=== PATIENT | female | born 1970 | race American Indian/Alaskan Native ===

== ENCOUNTER 2016-10-26 12:05 | Inpatient (IN) | payer BC ==
[2016-10-26] MEDS ORDERED: SUBLIMAZE IV ONE (12:39)
[2016-10-26] MEDS ORDERED: NITRO-BID 2% TP ONE (12:39)
[2016-10-26] MEDS ORDERED: ZOFRAN IV ONE (12:39)
--- NOTE | 2016-10-26 12:44 | Emergency Department Report ---
HPI - General Chief Complaint: Chest Pain Time Seen by Provider: 10/26/16 12:33 - HPI HPI: Room 25 The patient is a 46-year-old female presenting with a chief complaint of chest pain. The patient states approximately one to 2 hours ago she developed anterior chest heaviness associated with shortness of breath. Patient states she felt nervous and hands were shaking. Patient denies nausea/vomiting or diaphoresis. Patient currently gets her chest heaviness a score of 6/10. The patient states her last stress test occurred over 4 years ago and she has never had a cardiac catheterization Location: Chest Duration: One to 2 hours Quality: Heaviness Severity: 6/10 Modifying factors: [see above] Context: [see above] Mode of transportation: Unknown ED Past Medical Hx - Past Medical History Previous Medical History?: Yes Hx Hypertension: Yes - Surgical History Past Surgical History?: Yes Additional Surgical History: Gastric sleeve february 2012. ,. Tubal ligation, hysterectomy - Social History Smoking Status: Never Smoker Substance Use Type: Alcohol (occasional) - Medications Home Medications: Home Medications Medication Instructions Recorded Confirmed Last Taken Type Azilsartan Medoxomil [Edarbi] 80 mg PO DAILY 11/25/13 11/25/13 11/25/13 05:00 History Diphenoxylate/Atropine [Lomotil] 1 tab PO Q4H PRN #10 tablet 11/25/13 Unknown Rx Hyoscyamine Subl [Levsin Sl] 0.125 mg PO Q4-6H PRN #12 tablet 11/25/13 Unknown Rx Promethazine [Phenergan] 25 mg PO Q6H PRN #12 tablet 11/25/13 Unknown Rx Cyclobenzaprine [Flexeril 10 MG 10 mg PO TID PRN #20 tablet 09/29/14 Unknown Rx TAB] Naproxen [Naprosyn TAB] 500 mg PO BID #30 tablet 09/29/14 Unknown Rx Acetaminophen/Codeine 1 tab PO Q6H PRN #10 tab 11/05/15 Unknown Rx [Acetaminophen-Codeine #3 TAB] Diazepam Tab [Valium] 2 mg PO TID PRN #10 tablet 05/04/16 Unknown Rx ED Review of Systems ROS: Stated complaint: HIGH BP Other details as noted in HPI Comment: All other systems reviewed and negative Constitutional: denies: diaphoresis Eyes: denies: eye pain, eye discharge, vision change ENT: denies: ear pain, throat pain Respiratory: shortness of breath Cardiovascular: chest pain Endocrine: no symptoms reported Gastrointestinal: denies: abdominal pain, nausea, diarrhea Genitourinary: denies: urgency, dysuria, discharge Musculoskeletal: denies: back pain, joint swelling, arthralgia Skin: denies: rash, lesions Neurological: denies: headache, weakness, paresthesias Psychiatric: anxiety Hematological/Lymphatic: denies: easy bleeding, easy bruising Physical Exam - Physical Exam Vital Signs: Vital Signs 10/26/16 12:11 Temperature 99.1 F Pulse Rate 104 H Respiratory 22 Rate Blood Pressure 222/128 O2 Sat by Pulse 98 Oximetry Physical Exam: GENERAL: The patient is well-developed well-nourished female lying on stretcher not appearing to be in acute distress. [] HEENT: Normocephalic. Atraumatic. Extraocular motions are intact. Patient has moist mucous membranes. NECK: Supple. Trachea midline CHEST/LUNGS: Clear to auscultation. There is no respiratory distress noted. HEART/CARDIOVASCULAR: Regular. There is no tachycardia. There is no gallop rub or murmur. ABDOMEN: Abdomen is soft, nontender. Patient has normal bowel sounds. There is no abdominal distention. SKIN: There is no rash. There is no edema. There is no diaphoresis. NEURO: The patient is awake, alert, and oriented. The patient is cooperative. The patient has normal speech MUSCULOSKELETAL: There is no evidence of acute injury. ED Course Vital Signs 10/26/16 12:11 Temperature 99.1 F Pulse Rate 104 H Respiratory 22 Rate Blood Pressure 222/128 O2 Sat by Pulse 98 Oximetry ED Medical Decision Making - Lab Data Result diagrams: 10/26/16 12:32 10/26/16 12:32 Laboratory Tests 10/26/16 10/26/16 10/26/16 12:32 12:32 12:32 WBC 9.4 RBC 4.77 Hgb 12.6 Hct 39.6 MCV 83 MCH 26 L MCHC 32 RDW 13.6 Plt Count 282 Lymph % (Auto) 24.4 Butler % (Auto) 5.2 Eos % (Auto) 0.2 Baso % (Auto) 0.4 Lymph # 2.3 Butler # 0.5 Eos # 0.0 Baso # 0.0 Seg Neutrophils % 69.8 Seg Neutrophils # 6.5 PT 12.4 INR 0.93 APTT 35.8 Sodium 139 Potassium 3.8 Chloride 98.2 Carbon Dioxide 24 Anion Gap 21 BUN 8 Creatinine 0.7 Estimated GFR > 60 BUN/Creatinine Ratio 11.42 Glucose 106 H Calcium 8.5 Troponin T < 0.010 - EKG Data -: EKG Interpreted by Me EKG shows normal: sinus rhythm Rate: normal - EKG Data When compared to previous EKG there are: previous EKG unavailable Interpretation: nonspecific ST-T wave shakir (T-wave inversion in lead 3 and v2) - Radiology Data Radiology results: image reviewed (chest x-ray) interpreted by me: Chest x-ray-no focal infiltrates, no pneumothorax - Differential Diagnosis ACS, anxiety, GERD, pericarditis Critical care attestation.: If time is entered above; I have spent that time in minutes in the direct care of this critically ill patient, excluding procedure time. ED Disposition Clinical Impression: Chest pain Disposition: OP ADMITTED IP TO THIS HOSP Is pt being admited?: Yes Does the pt Need Aspirin: Yes Condition: Fair Instructions: Chest Pain (ED) Referrals: PRIMARY CARE, [Primary Care Provider] - 3-5 Days Time of Disposition: 13:27 (hospitalist paged)
[2016-10-26 12:47] LABS: Basophils % (Auto) 0.4 % (0.0-1.8); Eosinophils % (Auto) 0.2 % (0.0-4.3); Hematocrit 39.6 % (30.3-42.9); Hemoglobin 12.6 gm/dl (10.1-14.3); Mean Corpuscular HGB Conc 32 % (30-34); Mean Corpuscular Hemoglobin 26 pg (28-32); Mean Corpuscular Volume 83 fl (79-97); Platelet Count 282 K/mm3 (140-440); Red Blood Count 4.77 M/mm3 (3.65-5.03); Red Cell Distribution Width 13.6 % (13.2-15.2); White Blood Count 9.4 K/mm3 (4.5-11.0)
[2016-10-26] MEDS ORDERED: ASPIRIN PO ONE (12:47)
--- NOTE | 2016-10-26 12:56 | Admit Criteria Form ---
Admission Criteria Documentation: CHEST PAIN Clinical Indications for Admission to Inpatient Care (Place 'X' for any and all applicable criteria): Admission is indicated for chest pain and ANY ONE of the following(1)(2)(3)(4)(5 ): [ ]I. Angina with acute coronary syndrome (Also use Myocardial Infarction or Angina guideline) [ ]II. Hemodynamic instability [X ]III. Angina needing acute intervention as indicated by ALL of the following (11)(12): [ X]a) Unstable angina is present as indicated by angina that is ANY ONE of the following: []i) New onset [ ]ii) Nocturnal [ ]iii) Prolonged at rest [X ]iv) Progressive [ X]b) Angina warrants acute intervention as indicated by ANY ONE of the following: [ ]i) Recurrent angina (e.g, not responding as previously to treatment) [X ]ii) Angina at rest or with low-level activities despite initial medical therapy [ ]iii) New or presumably new ST-segment depression on ECG [ ]iv) Signs or symptoms of heart failure (eg, dyspnea, pulmonary edema) [ ]v) New or worsening mitral regurgitation [ ]vi) Hemodynamic instability [ ]vii) Dangerous arrhythmia (eg, sustained ventricular tachycardia) [ ]viii) History of percutaneous coronary intervention within 6 months [ ]ix) History of coronary artery bypass graft surgery [ ]x) JOY risk score of 2 or greater[A] [ ]xi) History of Diabetes(14) [ ]xii) High-risk cardiac ischemia findings on noninvasive testing (e.g, echocardiogram, treadmill testing, nuclear scan) [ ]xiii) Chronic renal insufficiency (ie, estimated GFR less than 60 mL/min/1.732m) [ ]xiv) Left ventricular ejection fraction less than 40% [ ]IV. Evidence of LA (eg, cardiac biomarkers positive, ST-segment elevation on ECG) also use Myocardial Infarction Criteria Form. [ ]V. Pulmonary edema [ ]. Respiratory distress [ ]VII. Chest pain indicative of serious diagnosis other than coronary artery disease (eg, aortic dissection) [ ]VIII. Contraindications and/or Inappropriate clinical situations for Observational Care in patients with Chest Pain, when ANY ONE of the following is required: [ ]a) Patient with risk factor for pulmonary embolism, acute coronary syndrome and myocardial infarction (18) [ ]b) Patient with Pulmonary embolism require an average LOS of 4.3 days, therefore emergency department observation management is inappropriate 18,23 [ ]c) Painful condition/s in the elderly, have the highest rate of recidivism after emergency department observation management (10.8%) 20,21,22 [ ]d) Elevated cardiac biomarker requires intensive and exhaustive care (19) [X ]IX. General contraindications and/or Inappropriate clinical situations for Observational Care in patients with Chest Pain, when ANY ONE of the following is required: [ ]a) Prediction of prolongation of LOS based on ANY ONE of the following may be considered as a contraindication for observational care 2, 3, 4, 5, 6, 7, 8, 9, 10, 11 [ ]i) Age > 65 yrs. [ ]ii) Patient arriving by ambulance [ ]iii) Patient with high acuity [ ]iv) Patient requiring vital sign monitoring [ ]v) Patient on IV medication [X ]b) Systolic blood pressures 180mmHg 3,12 [ ]c) Patient with altered mental status including delirium and other alteration of consciousness, (3) [ ]d) Patient whose discharge disposition will be to a long term home or rehabilitation home should not be managed in Emergency Department Observation Unit. CMS rule requires 3 days hospital stay before such placement. 3,13 [ ]e) Patient with failure to thrive due to broad array of etiologies 3,16,17 [ ]f) Inability to ambulate 3,14 Extended stay beyond goal length of stay may be needed for (1)(28): [ ]a) Specific condition diagnosed after evaluation (eg, pulmonary embolism, aortic dissection) [ ]b) Unstable angina [ ]c) Continued suspicion of acute coronary syndrome with inability to complete needed cardiac evaluation (eg, patient clinically unable to undergo stress testing) [ ]d) Myocardial infarction (Contents from ANGINA and CHEST PAIN clinical indications for admission to inpatient care have been integrated in this form) The original [employer] content created by [employer] has been revised. The portions of the content which have been revised are identified through the use of italic text or in bold, and [employer] [facility] [employer] has neither reviewed nor approved the modified material. All other unmodified content is copyright [employer]. Please see references footnoted in the original [employer] edition 2016 Admission Criteria Met: Yes
[2016-10-26 13:02] LABS: BUN/Creatinine Ratio 11.42; Blood Urea Nitrogen 8 mg/dL (7-17); Calcium 8.5 mg/dL (8.4-10.2); Carbon Dioxide 24 mmol/L (22-30); Glucose 106 mg/dL (65-100)
[2016-10-26 13:03] LABS: Chloride 98.2 mmol/L (98-107); Potassium 3.8 mmol/L (3.6-5.0); Sodium 139 mmol/L (137-145)
[2016-10-26 13:04] LABS: Anion Gap 21 mmol/L
[2016-10-26 13:19] LABS: INR 0.93 (0.87-1.13)
[2016-10-26 13:20] LABS: Partial Thromboplastin Time 35.8 Sec. (24.2-36.6)
--- NOTE | 2016-10-26 14:03 | XRay Report ---
PORTABLE CHEST: An AP portable view of the chest demonstrates a normal cardiac contour considering the limits of this technique. The lungs are clear with no evidence of infiltrate, fluid or failure. IMPRESSION: Normal portable chest.
[2016-10-26] MEDS ORDERED: TYLENOL ONE (15:39)
--- NOTE | 2016-10-26 16:49 | Event Note ---
Date: 10/26/16 See H/p in reports Chest pain-r/o [place] protocol
[2016-10-26] MEDS ORDERED: TYLENOL #3 PO PRN (16:50)
[2016-10-26] MEDS ORDERED: PHENERGAN PO PRN (16:51)
[2016-10-26] MEDS ORDERED: VALIUM PO PRN (16:51)
[2016-10-26] MEDS ORDERED: FLEXERIL PO PRN (16:51)
[2016-10-26] MEDS ORDERED: LEVSIN SL PO PRN ×2 (16:51→17:47)
[2016-10-26] MEDS ORDERED: LOMOTIL PO PRN (16:51)
[2016-10-26] MEDS ORDERED: DILAUDID IV PRN (16:55)
[2016-10-26] MEDS ORDERED: ZOFRAN IV PRN (16:55)
[2016-10-26] MEDS ORDERED: MILK OF MAGNESIA PO PRN (16:55)
[2016-10-26] MEDS ORDERED: DULCOLAX PR PRN (16:55)
[2016-10-26] MEDS ORDERED: TYLENOL PO PRN (16:55)
[2016-10-26] MEDS ORDERED: SODIUM CHLORIDE FLUSH SYRINGE 10 ML IV PRN (16:59)
[2016-10-26] MEDS ORDERED: AZILSARTAN MEDOXOMIL 80 MG PO SCH (17:00)
[2016-10-26 18:46] LABS: Creatine Kinase MB 1.2 ng/mL (0.0-4.0)
[2016-10-26 18:47] LABS: Creatine Kinase 87 units/L (30-135)
[2016-10-26] MEDS: LOVENOX SUB-Q SCH (19:38)
[2016-10-26] MEDS: NAPROSYN PO SCH (21:59)
[2016-10-27 01:03] LABS: Creatine Kinase MB 1.1 ng/mL (0.0-4.0)
[2016-10-27 01:05] LABS: Creatine Kinase 78 units/L (30-135)
--- NOTE | 2016-10-27 02:45 | History and Physical Report ---
CHIEF COMPLAINT: Left-sided chest pain. HISTORY OF PRESENT ILLNESS: A 46-year-old female who presents with chest pain of 2 hours' duration prior to admission to the ER. Chest pain is retrosternal and left precordial, and associated with shortness of breath. [place] nervous and hands were shaking. Denies nausea, vomiting, or diaphoresis. Her chest pain is about 6/10. Her last stress test was 4 years ago. She never had a cardiac catheterization. PAST MEDICAL HISTORY: Significant for hypertension. PAST SURGICAL HISTORY: Gastric sleeve in 02/2012 and , tubal ligation, and hysterectomy. SOCIAL HISTORY: Does not smoke. Alcohol occasionally. CURRENT MEDICATIONS: Edarbi 80 mg daily, Flexeril 10 mg t.i.d., diazepam 2 mg p.o. t.i.d. FAMILY HISTORY: Significant for hypertension. REVIEW OF SYSTEMS: Significant for left-sided chest pain and shortness of breath. Otherwise, review of systems is essentially negative. A 14-point review of systems done. PHYSICAL EXAMINATION: GENERAL: Middle-aged female, cooperative during examination. VITAL SIGNS: Blood pressure is 222/128, temperature is 99.1, pulse is 104, respirations are 22. HEENT: Unremarkable. Pupils equal and reactive. NECK: Supple, no lymphadenopathy, no thyromegaly. LUNGS: Clear to auscultation and percussion. Good air entry. CARDIOVASCULAR: S1, S2 heard. No gallop, no murmur, no rub. Apical impulse in left fifth intercostal space and midclavicular line. ABDOMEN: Soft and benign. No hepatosplenomegaly. No guarding, no rigidity. Hernial orifices are normal. EXTREMITIES: Good pedal pulses. No pedal edema. CENTRAL NERVOUS SYSTEM: Alert and oriented x 4, nonfocal exam. LABORATORY DATA: Significant for white count of 9400, H and H is 12.6 and 39.6, platelet count is 282,000. Glucose is 106. Electrolytes are normal. EKG shows normal sinus rhythm, nonspecific ST-T wave changes. Previous EKG unavailable. Chest x-ray, no focal deficits. ASSESSMENT AND PLAN: 1. Hypertensive emergency. Continue Edarbi 80 mg or equivalent. Add Coreg and amlodipine as necessary. 2. Chest pain, rule out myocardial infarction, chest pain protocol. Serial cardiac enzymes and nuclear Lexiscan. 3. Deep venous thrombosis prophylaxis, Lovenox 40 mg subcutaneous daily. [facility]# [id number]
[2016-10-27 07:22] LABS: Basophils % (Auto) 0.4 % (0.0-1.8); Eosinophils % (Auto) 1.4 % (0.0-4.3); Hematocrit 36.3 % (30.3-42.9); Hemoglobin 11.6 gm/dl (10.1-14.3); Mean Corpuscular HGB Conc 32 % (30-34); Mean Corpuscular Hemoglobin 27 pg (28-32); Mean Corpuscular Volume 84 fl (79-97); Platelet Count 256 K/mm3 (140-440); Red Blood Count 4.35 M/mm3 (3.65-5.03); Red Cell Distribution Width 13.6 % (13.2-15.2); White Blood Count 7.2 K/mm3 (4.5-11.0)
[2016-10-27 07:48] LABS: Alanine Aminotransferase 8 units/L (7-56); Albumin 3.3 g/dL (3.9-5); Albumin/Globulin Ratio 0.9 %; Anion Gap 16 mmol/L; Bilirubin,Total 0.4 mg/dL (0.1-1.2); Blood Urea Nitrogen 10 mg/dL (7-17); Calcium 8.3 mg/dL (8.4-10.2); Carbon Dioxide 27 mmol/L (22-30); Chloride 101.4 mmol/L (98-107); Glucose 79 mg/dL (65-100); Potassium 4.5 mmol/L (3.6-5.0); Sodium 140 mmol/L (137-145)
[2016-10-27 08:37] LABS: Alkaline Phosphatase 81 units/L (35-129)
[2016-10-27] MEDS ORDERED: LEXISCAN IV ONE ×2 (08:51→08:53)
[2016-10-27] MEDS ORDERED: APRESOLINE IV PRN (12:07)
[2016-10-27] MEDS: LOVENOX SUB-Q SCH (12:10)
--- NOTE | 2016-10-27 12:12 | Treadmill Report ---
REASON FOR STUDY: Chest pain. IMAGING PROTOCOL: The patient received 10 mCi of Technetium 99m Tetrofosmin for resting image and 28 mCi of Technetium 99m Tetrofosmin for stress imaging. The imaging for the whole procedure was completed 30-90 minutes following the initial injection of Technetium 99m tetrofosmin. The SPECT imaging in the 180 degree arc was performed in the right anterior oblique projection. Computerized reconstruction of the images was performed for analysis. IMAGING RESULTS: Normal cavity size from stress to rest. Normal distribution of radionuclide in the anterior, inferior, septal, and apical regions. Gated SPECT, EF 70% with no wall motion abnormality. The patient infused Lexiscan with no EKG changes. SUMMARY: 1. Negative Lexiscan EKG. 2. Normal rest and stress myocardial perfusion scan. No significant stress ischemia. No wall motion abnormality. Gated SPECT, EF of 70%. JOB# [id number] LYLA/NICK
[2016-10-27] MEDS: NAPROSYN PO SCH (12:15)
--- NOTE | 2016-10-27 14:19 | Discharge Summary ---
Providers - Providers Date of Admission: 10/26/16 16:55 Date of discharge: 10/27/16 Attending physician: TRISTA BOWDEN 10/26/16 Consult to Cardiac Rehabilitation [CONS] Routine Reason For Exam: Phase I Primary care physician: [facility] [employer]OR Hospitalization Condition: Fair Disposition: DISCHARGED TO HOME OR SELFCARE - Discharge Diagnoses (1) Chest pain Status: Acute (2) Acute costochondritis Status: Acute Core Measure Documentation - Palliative Care Palliative Care/ Comfort Measures: Not Applicable - Core Measures Any of the following diagnoses?: none Exam - Constitutional Vitals: Temp Pulse Resp BP Pulse Ox 98.7 F 75 20 170/104 99 10/27/16 11:38 10/27/16 11:38 10/27/16 11:38 10/27/16 12:15 10/27/16 11:38 Plan Activity: no restrictions Diet: low fat, low cholesterol, low salt Additional Instructions: 1.Follow up with PCP in 1 week Follow up with: PRIMARY CAREMD [Primary Care Provider] - 3-5 Days Prescriptions: Famotidine [Pepcid] 20 mg PO BID #60 tablet
[2016-10-27 14:26] VITALS: BP 135/78
[2016-10-27] MEDS ORDERED: COZAAR PO SCH (20:00)
== END 2016-10-27 16:55 | disposition home or self-care (01) | DRG 206 ==
LOC: ED 12:05 → 4A 16:55
PROVIDERS: ADMIT Internal Medicine; ATTEND Internal Medicine
DX: M94.0 Chondrocostal junction syndrome [Tietze] (principal); I16.1 Hypertensive emergency; I10 Essential (primary) hypertension; Z88.6 Allergy status to analgesic agent; Z98.51 Tubal ligation status; Z90.710 Acquired absence of both cervix and uterus; Z82.49 Family history of ischemic heart disease and other diseases of the circulatory system
CPT/HCPCS: 36415; 71010; 78452; 80048; 80053; 82550; 82553; 84484; 85025; 85379; 85610; 85730; 93005; 93010; 93017; 96374; 96375; A9502; J0360; J1650; J2405; J2785; J3010